=== PATIENT | male | born 1975 | race Caucasian/White ===

== ENCOUNTER 2021-04-08 09:21 | Emergency (ER) | payer BC ==
[~2021-04-08] VITALS: Ht 175.2 cm; Wt 154.2 kg
== END 2021-04-08 11:18 | disposition home or self-care (01) ==
LOC: ED 09:21
DX: S49.92XA Unspecified injury of left shoulder and upper arm, initial encounter (principal); E66.01 Morbid (severe) obesity due to excess calories; W01.0XXA Fall on same level from slipping, tripping and stumbling without subsequent striking against object, initial encounter; Y93.89 Activity, other specified; Y92.89 Other specified places as the place of occurrence of the external cause; Y99.8 Other external cause status